=== PATIENT | male | born 1990 | race Two or more races ===

== ENCOUNTER 2024-01-04 04:25 | Emergency (ER) | payer OTHER ==
[~2024-01-04] VITALS: Ht 177.8 cm; Wt 64.9 kg
[2024-01-04] MEDS ORDERED: ONDANSETRON HCL 2 MG/ML VIAL IV STA (05:10)
[2024-01-04] MEDS ORDERED: HYOSCYAMINE SULFATE 0.125 MG TAB.SUBL SL STA (05:11)
[2024-01-04] MEDS ORDERED: FAMOTIDINE/PF 20 MG/2 ML VIAL IV PUSH STA (05:11)
[2024-01-04] MEDS ORDERED: 0.9 % SODIUM CHLORIDE 1,000 ML IV ONE (05:15)
[2024-01-04 06:13] LABS: HEMATOCRIT 45.1 % (39.0-48.0); HEMOGLOBIN 15.6 g/dL (13-16.00); MEAN CORPUSCULAR HEMOGLOBIN 31.4 pg (27.00-32.0); MEAN CORPUSCULAR HGB CONC 34.5 g/dl (32.0-36.0); PLATELET COUNT 263 K/uL (150-450); RED BLOOD COUNT 4.96 M/uL (4.00-6.00); RED CELL DISTRIBUTION WIDTH 13.1 % (11.5-14.5)
[2024-01-04 06:31] LABS: CALCIUM 9.1 mg/dL (8.5-10.1); CREATININE SERUM 0.91 mg/dL (0.70-1.30); GFR 95.37; POTASSIUM 3.88 mEq/L (3.5-5.1)
[2024-01-04 10:05] LABS: PH,URINE 5.5 (5.0-8.0); URINE BILIRRUBIN Small (NEGATIVE); URINE BLOOD Small; URINE COLOR Dark Yellow; URINE GLUCOSE Negative (NEGATIVE); URINE KETONE Trace (NEGATIVE); URINE LEUKOCYTE Negative; URINE NITRATE Negative; URINE PROTEIN 30 (NEGATIVE); URINE UROBILINOGEN 0.2 E.U./dl
[2024-01-04 10:06] LABS: URINE BACTERIA 12.5 uL (0.0-1933); URINE CAST 2.44 uL (0.0-1.40); URINE EPITHELIAL CELLS 21.9 uL (0.0-38.8); URINE RBC 88.1 uL (0.0-20.8); URINE WBC 25.9 uL (0.0-23.2)
[2024-01-04 10:22] LABS: URINE APPEARANCE CLEAR; URINE MUCUS HEAVY
[2024-01-04 10:23] LABS: URINE CRYSTALS NEGATIVE /HPF
[2024-01-04] MEDS ORDERED: METROnidazole 500 MG TABLET PO ONE (14:00)
[2024-01-04] MEDS ORDERED: LOPERAMIDE HCL 2 MG CAPSULE PO ONE (14:30)
== END 2024-01-04 14:52 | disposition home or self-care (01) ==
LOC: ER 04:27
PROVIDERS: General Practice
DX: A05.9 Bacterial foodborne intoxication, unspecified (principal)